=== PATIENT | female | born 1975 | race Caucasian/White ===

== ENCOUNTER → 2019-08-28 | Outpatient (CLI) | payer SELFPAY ==
[~2019-08-28] MED LIST: BUSPAR10 MG PO; SEROQUEL XR150 MG PO; SEROQUEL XR50 MG PO; SEROQUEL50 MG PO
[2019-08-28 14:48] LABS: HEMATOCRIT 40.7 % (37.0-47.0); MEAN CELL VOLUME 93 fl (80.0-100.0); MEAN CORPUSCULAR HEMOGLOBIN 32 pg (27.0-31.0); MEAN CORPUSCULAR HGB CONC 34 g/dl (33.0-37.0); MEAN PLATELET VOLUME 9.7 fl (7.4-10.4); PLATELET COUNT 225 K/mm3 (130-400); RED BLOOD COUNT 4.36 M/mm3 (4.10-5.30); REDCELL DISTRIBUTION WIDTH-CV 10.9 % (11.5-14.5)
[2019-08-28 15:00] LABS: ALBUMIN 4.8 gm/dL (3.5-5.0); BILIRUBIN,TOTAL 0.6 mg/dL (0.0-1.0); CALCIUM 9.6 mg/dL (8.4-10.2); CREATININE, serum 0.69 (0.52-1.25); POTASSIUM 4.1 mmol/L (3.4-5.0); TOTAL PROTEIN 8.2 gm/dL (6.4-8.2)
[2019-08-28 15:30] LABS: THYROID STIMULATING HORMONE 1.76 uIU/mL (0.465-4.680)
[2019-08-28 16:08] LABS: HIV 1/2 Antibodies Non-Reactive; HIV-1p24 Antigen Non-Reactive
[2019-08-29 02:35] LABS: HEPATITIS A ANTIBODY-IGM Negative (Negative); HEPATITIS B SURFACE ANTIGEN Negative (Negative)
[2019-08-29 11:23] LABS: HEPATITIS C VIRUS ANTIBODY Reactive (Negative)
== END ==
LOC: COL.LAB 13:52
PROVIDERS: Family Medicine
DX: Z01.89 Encounter for other specified special examinations (principal)

== ENCOUNTER 2019-12-24 09:50 | Emergency (ER) | payer SELFPAY ==
[~2019-12-24] VITALS: Ht 160 cm; Wt 55.5 kg
[2019-12-24 09:55] VITALS: BP 113/76; TEMP 98.5
[2019-12-24 10:08] LABS: COLLECTION METHOD CLEAN CATCH
[2019-12-24 10:31] LABS: MUCOUS Present /lpf; PH 7 (5-8); SQUAMOUS EPITHELIAL 0-2 /hpf; URINE APPEARANCE Clear; URINE BACTERIA Rare /hpf; URINE BILIRUBIN Negative (NEGATIVE); URINE BLOOD Negative (NEGATIVE); URINE COLOR Yellow; URINE GLUCOSE Negative (NEGATIVE); URINE KETONE Negative (NEGATIVE); URINE LEUKOCYTE ESTERASE Negative (NEGATIVE); URINE NITRATE Negative (NEGATIVE); URINE PROTEIN(semi-quant) Negative (NEGATIVE); URINE RBC 0-2 /hpf; URINE UROBILINOGEN Negative (NEGATIVE)
[2019-12-24] MEDS ORDERED: FLEXERIL 1010 MG/TAB PO (11:03)
[2019-12-24] MEDS ORDERED: NAPROSYN500 MG PO (11:03)
[2019-12-24 11:18] VITALS: PULSE 66
== END 2019-12-24 11:45 | disposition home or self-care (01) ==
LOC: COL.ER 09:50
PROVIDERS: Emergency Medicine
DX: M54.5 Low back pain (principal); M79.661 Pain in right lower leg; F32.9 Major depressive disorder, single episode, unspecified; F41.9 Anxiety disorder, unspecified; F17.290 Nicotine dependence, other tobacco product, uncomplicated; Z98.51 Tubal ligation status
CPT/HCPCS: J1885

== ENCOUNTER → 2019-12-31 | Outpatient (CLI) | payer SELFPAY ==
[~2019-12-31] MED LIST changes: +FLEXERIL 1010 MG/TAB PO; +NAPROSYN500 MG PO
[2019-12-31 18:18] LABS: MEAN CELL VOLUME 90 fl (80.0-100.0); MEAN CORPUSCULAR HEMOGLOBIN 31 pg (27.0-31.0); MEAN CORPUSCULAR HGB CONC 34 g/dl (33.0-37.0); MEAN PLATELET VOLUME 9.1 fl (7.4-10.4); PLATELET COUNT 197 K/mm3 (130-400); RED BLOOD COUNT 3.92 M/mm3 (4.10-5.30); REDCELL DISTRIBUTION WIDTH-CV 11.1 % (11.5-14.5)
[2019-12-31 18:31] LABS: ALBUMIN 4.2 gm/dL (3.5-5.0); BILIRUBIN,TOTAL 0.4 mg/dL (0.0-1.0); CALCIUM 8.9 mg/dL (8.4-10.2); CREATININE, serum 0.73 (0.52-1.25); TOTAL PROTEIN 7.2 gm/dL (6.4-8.2)
[2019-12-31 18:57] LABS: HEMATOCRIT 35.2 % (37.0-47.0)
== END ==
LOC: ZCOL.LAB 17:16
PROVIDERS: Family Medicine
DX: B19.20 Unspecified viral hepatitis C without hepatic coma (principal)
CPT/HCPCS: 87522

== ENCOUNTER → 2022-06-18 | Outpatient (CLI) | payer OTHER | LOC: MC.RAD 14:12 | DX: Z12.31 Encounter for screening mammogram for malignant neoplasm of breast (principal) ==